=== PATIENT | female | born 1980 | race Caucasian/White ===

== ENCOUNTER 2023-02-21 17:19 | Emergency (ER) | payer MEDICAID, SELFPAY ==
[2023-02-21 17:26] VITALS: BP 149/89; BP 167/83; PULSE 120; PULSE 133; RESP 19; RESP 20; TEMP 37.4; O2SAT 96; BMI 32.9
[2023-02-21 17:31] VITALS: BP 149/89; PULSE 123; RESP 20; O2SAT 94
--- NOTE | 2023-02-21 17:42 | XR_ITS ---
PROCEDURE INFORMATION: Exam: XR Left Forearm Exam date and time: 02/21/2023 5:54 PM Age: 42 years old Clinical indication: Injury or trauma; Laceration; Wrist; Left; Additional info: Laceration, R/O fb TECHNIQUE: Imaging protocol: Radiologic exam of the left forearm. Views: 2 views. COMPARISON: No relevant prior studies available. FINDINGS: Bones/joints: Normal. Soft tissues: Normal. IMPRESSION: No acute findings.
--- NOTE | 2023-02-21 17:46 | HMH.EDGENADL ---
Discharge Plan Disposition Patient Disposition: Home, Self-Care Prescriptions Prescriptions: New cefadroxil 500 mg capsule 500 mg PO BID 5 Days Qty: 10 0RF Referrals Follow up/Referrals: Bonnie Jones PA [Primary Care Provider] - See instructions Clinical Impressions Clinical Impression: Laceration Instructions Patient Instructions: DI for Laceration Repair Discharge ED Provider: Balbir Dimas General Adult HPI General Chief complaint: Wound/Laceration Stated complaint: AO 02/21 lac to left wrist Time Seen by Provider: 02/21/23 17:26 Mode of Arrival: Ambulatory Source of Information: Patient Limitations: No Limitations Description of Symptoms (Recalled from ER Triage Doc. by RN): 42 yo F presents to ED with laceration to right wrist. pt was chopping weeds with a machete, and the blade cut her wrist. happened approx 25 mins ago. pt is not up to date with tetanus immunization. History of Present Illness HPI narrative: This a 42-year-old female with no relevant medical history presenting with laceration. Patient states that she was cutting weeds with a machete with her right hand. Swung, hit her left wrist with a machete. Bleeding hemostatic with pressure. Came to the ER for further evaluation. Last tetanus shot was more than 10 years ago. Denies numbness, weakness, tingling, or loss of motion. Related Data Previous Rx's Medication Instructions Recorded cefadroxil 500 mg capsule 500 mg PO BID 5 days #10 caps 02/21/23 Allergies Allergy/AdvReac Type Severity Reaction Status Date / Time lemon Allergy Verified 02/21/23 17:41 [facility] Disclaimer: The information contained in this section may have been updated after the patient was seen, as this information can be updated by other users. Social History Smoking Status: Current every day smoker alcohol intake: never current occupational status: employed Travel in the last 8 weeks: None ROS Obtained: Yes All systems reviewed & no additional complaints except as documented Physical Exam General General appearance: alert, in no apparent distress and other ( ) Head Head exam: atraumatic and normocephalic Eye Eye exam: Present normal appearance, PERRL and EOMI ENT ENT exam: Present mucous membranes moist Neck Neck exam: Present normal inspection, full ROM and trachea midline Respiratory Respiratory exam: Absent respiratory distress, wheezes, stridor, accessory muscle use or prolonged expiratory phase Cardiovascular Cardiovascular exam: Present regular rate and normal rhythm Abdominal Exam Abdominal exam: Present soft; Absent distention, tenderness, guarding, rebound, rigidity or normal bowel sounds Extremities Exam Extremities exam: Present tenderness (3 cm laceration on ventral aspect of wrist. Neurologically, vascularly intact. Full range of motion including flexion, extension distally. Exposed tendon); Absent edema Neurological Exam Neurological exam: Present alert, oriented X3, CN II-XII intact and normal gait; Absent motor sensory deficit Skin Skin exam: Present warm and dry; Absent diaphoresis or erythema Medical Decision Making Medical Records Medical records reviewed: Yes I reviewed the patient's medical records. Reid Inquiry Pt receiving controlled substance: No Reid was queried for this patient: No Vital Signs: 02/21/23 17:26 02/21/23 17:26 02/21/23 17:31 Temperature 99.3 F Temperature Source Oral Pulse Rate 133 H 123 H Pulse Rate [Left] 120 H Respiratory Rate 19 20 20 Blood Pressure 167/83 H 149/89 H Blood Pressure [Right Arm] 149/89 H Blood Pressure Mean 100 109 Blood Pressure Mean [Right Arm] 109 02 Sat by Pulse Oximetry 96 96 94 L Orders (Tests/Meds): ED MEDICATIONS Discontinued Medications Generic Name Dose Route Start Last Admin Trade Name Freq PRN Reason Stop Dose Admin Lidocaine HCl 10 ml 02/21/23 17:42 Lidocaine 1% 10ml Mdv IJ 02/21/23 17:43
[2023-02-21 19:30] VITALS: BP 140/83; PULSE 100; RESP 17; TEMP 36.7; O2SAT 99
== END 2023-02-21 19:30 | disposition home or self-care (01) ==
PROVIDERS: Emergency Provider Emergency Medicine; PCP Physician Assistant
DX: S61.511A Laceration without foreign body of right wrist, initial encounter (principal); W26.8XXA Contact with other sharp object(s), not elsewhere classified, initial encounter; Y93.H2 Activity, gardening and landscaping; F17.200 Nicotine dependence, unspecified, uncomplicated; Z23 Encounter for immunization
CPT/HCPCS: 12002; 73090; 90471; 90714; 96372; 99283

== ENCOUNTER 2023-04-19 21:49 | Emergency (ER) | payer MEDICAID, SELFPAY ==
[2023-04-19 21:49] VITALS: BP 123/53; PULSE 86; RESP 16; TEMP 36.8; O2SAT 99; BMI 34.3
--- NOTE | 2023-04-19 21:49 | ECG_ITS ---
APPROVED REPORT Exam: Resting ECG HR:81 bpm ECG Measurements Heart Rate 81 AXES MA 151 P 71 QRSd 92 QRS 66 QT 363 T 59 QTc 400 Conclusion SINUS RHYTHM NORMAL ECG UNCONFIRMED REPORT Electronically signed by : Javi Payne MD 04/21/2023 17:13:06
[2023-04-19 21:52] VITALS: PULSE 80
--- NOTE | 2023-04-19 21:54 | XR_ITS ---
PROCEDURE INFORMATION: Exam: XR Chest Exam date and time: 04/19/2023 10:07 PM Age: 42 years old Clinical indication: Pain; Chest pressure; Additional info: Cp TECHNIQUE: Imaging protocol: Radiologic exam of the chest. Views: 2 views. COMPARISON: No relevant prior studies available. FINDINGS: Lungs: Unremarkable. No consolidation. Pleural spaces: Unremarkable. No pleural effusion. No pneumothorax. Heart/Mediastinum: Unremarkable. No cardiomegaly. Bones/joints: Unremarkable. IMPRESSION: No acute findings.
[2023-04-19 22:00] LABS: Basophils # 0.1 K/mm3 (0-0.2); Basophils % 0.6 % (0.1-2.0); Eosinophils # 0.1 K/mm3 (0.0-0.4); Eosinophils % 0.6 % (0.1-12.0); Hematocrit 45.4 % (37.0-47.0); Hemoglobin 14.1 g/dL (12.2-16.2); Lymphocytes # 2.6 K/mm3 (0.7-4.5); Lymphocytes % 22.4 % (10-50); Mean Corpuscular Hemoglobin 26.7 pg (27.0-31.2); Mean Corpuscular Volume 86.2 fl (81-99); Mean Platelet Volume 8.2 fl (7.4-10.4); Monocytes # 0.8 K/mm3 (0.1-1.0); Monocytes % 6.8 % (1.7-9.3); Neutrophils % 69.6 % (37.0-80.0); Platelet Count 406 K/mm3 (142-424); Red Blood Count 5.27 M/mm3 (4.20-5.40); Red Cell Distribution Width 15.1 % (11.5-17.5); White Blood Count 11.5 K/mm3 (4.8-10.8)
[2023-04-19 22:01] VITALS: BP 120/79; PULSE 66; RESP 18; O2SAT 100
[2023-04-19 22:06] LABS: Chloride 108 mmol/L (98-107); Potassium 3.4 mmoL/L (3.5-5.1); Sodium 139 mmol/L (136-145)
[2023-04-19 22:07] LABS: HCG Qualitative, Serum Negative (Negative)
[2023-04-19 22:08] LABS: Blood Urea Nitrogen 5 mg/dl (7-17); Creatinine Clearance Estimated 133 mL/min (50-200); Estimated Glomerular Filt Rate 79 ml/min (>60); GFR (African American) 96 ML/MIN (>60)
[2023-04-19 22:09] LABS: Alanine Aminotransferase 27 U/L (12-78); Albumin Level 4.2 g/dl (3.5-5.0); Albumin/Globulin Ratio 1.4 (1.1-1.8); Alkaline Phosphatase 56 U/L (38-126); Anion Gap 11.4 mEq/L (5-15); Aspartate Amino Transferase 36 U/L (14-36); Bilirubin,Total 0.4 mg/dl (0.2-1.3); Calcium 8.9 mg/dl (8.4-10.2); Carbon Dioxide 23 mmol/L (22.0-30.0); Globulin 3.1 g/dL (1.3-3.2); Glucose 95 mg/dl (74-100); Total Protein,Serum 7.3 g/dl (6.3-8.2)
[2023-04-19 22:22] LABS: Troponin I < 0.01 ng/ml (0.00-0.034)
--- NOTE | 2023-04-19 22:29 | HMH.EDGENADL ---
Discharge Plan Disposition Patient Disposition: Home, Self-Care Chief Complaint: Chest Pain Prescriptions Prescriptions: No Action No Known Home Medications Referrals Follow up/Referrals: Provider,Referral, [Primary Care Provider] - See instructions Activity Restrictions/Add. Instructions Additional Instructions/Restrictions: Call your family doctor to establish care for this visit to the emergency department and schedule follow-up within 48 hours to ensure improvement. If you have any worsening of your condition or any other concerning signs or symptoms, return to the emergency department or your primary care doctor for further evaluation. Clinical Impressions Clinical Impression: Acute dyspnea Discharge ED Provider: Balbir Dimas General Adult HPI General Chief complaint: Chest Pain Stated complaint: cp Time Seen by Provider: 04/19/23 21:54 Mode of Arrival: Ambulatory Source of Information: Patient Limitations: No Limitations Description of Symptoms (Recalled from ER Triage Doc. by RN): pt c/o chest heaviness x several day but today began having pain and numbness radiating up lt side of neck and down lt arm. History of Present Illness HPI narrative: 42-year-old female with history of hypertension, anxiety, asthma presenting with chest tightness. Patient states that she has had chest tightness for the past 3 to 4 days. Has been getting worse. Nonpositional, exertional. She states that she feels like there is a 10,000 pound elephant jumping up and down on my chest. Denies wheezing, fevers, chills, nausea or vomiting. States that she has had associated tingling in her hands and my hands draw up. Related Data Home Medications Medication Instructions Recorded Confirmed No Known Home Medications 04/19/23 04/19/23 Allergies Allergy/AdvReac Type Severity Reaction Status Date / Time lemon Allergy Verified 02/21/23 17:41 [facility] Disclaimer: The information contained in this section may have been updated after the patient was seen, as this information can be updated by other users. Social History (Updated 02/21/23 @ 19:22 by Balbir Dimas MD) Smoking Status: Current every day smoker alcohol intake: never current occupational status: employed Travel in the last 8 weeks: None ROS Obtained: Yes All systems reviewed & no additional complaints except as documented Physical Exam General General appearance: alert, in no apparent distress and anxious Head Head exam: atraumatic and normocephalic Eye Eye exam: Present normal appearance, PERRL and EOMI ENT ENT exam: Present mucous membranes moist Neck Neck exam: Present normal inspection, full ROM and trachea midline Respiratory Respiratory exam: Present normal lung sounds bilaterally; Absent respiratory distress, wheezes, stridor, accessory muscle use or prolonged expiratory phase Cardiovascular Cardiovascular exam: Present regular rate and normal rhythm Abdominal Exam Abdominal exam: Present soft; Absent distention, tenderness, guarding, rebound, rigidity or normal bowel sounds Extremities Exam Extremities exam: Present edema Neurological Exam Neurological exam: Present alert, oriented X3, CN II-XII intact and normal gait; Absent motor sensory deficit Skin Skin exam: Present warm and dry; Absent diaphoresis or erythema Medical Decision Making Medical Records Medical records reviewed: Yes I reviewed the patient's medical records. Reid Inquiry Pt receiving controlled substance: No Reid was queried for this patient: No Vital Signs: 04/19/23 21:49 04/19/23 21:52 04/19/23 22:01 Temperature 98.2 F Temperature Source Oral Pulse Rate 80 66 Pulse Rate [Right] 86 Respiratory Rate 16 18 Blood Pressure 120/79 Blood Pressure [Right Arm] 123/53 L Blood Pressure Mean 89 Blood Pressure Mean [Right Arm] 76 02 Sat by Pulse Oximetry 99 100 04/19/23 22:31 Temperature Temperature Source Pul
[2023-04-19 22:31] VITALS: BP 121/75; PULSE 73; RESP 20; O2SAT 100
[2023-04-19 23:20] VITALS: BP 143/74; PULSE 77; RESP 18; TEMP 36.7; O2SAT 98
== END 2023-04-19 23:21 | disposition home or self-care (01) ==
PROVIDERS: Emergency Provider Emergency Medicine
DX: R07.89 Other chest pain (principal); R06.00 Dyspnea, unspecified; I10 Essential (primary) hypertension; F41.9 Anxiety disorder, unspecified; J45.909 Unspecified asthma, uncomplicated; F17.200 Nicotine dependence, unspecified, uncomplicated
CPT/HCPCS: 71046; 80053; 84484; 84703; 85025; 93005; 99285

== ENCOUNTER → 2023-05-19 09:08 | Outpatient (CLI) | payer MEDICAID, SELFPAY ==
[2023-05-19 19:05] LABS: Basophils # 0.1 K/mm3 (0-0.2); Basophils % 0.5 % (0.1-2.0); Eosinophils # 0.1 K/mm3 (0.0-0.4); Eosinophils % 1.5 % (0.1-12.0); Hematocrit 42.5 % (37.0-47.0); Hemoglobin 14.2 g/dL (12.2-16.2); Lymphocytes # 2.6 K/mm3 (0.7-4.5); Lymphocytes % 28.9 % (10-50); Mean Corpuscular HGB Conc 33.4 g/dL (31.8-35.4); Mean Corpuscular Volume 86.7 fl (81-99); Mean Platelet Volume 9.3 fl (7.4-10.4); Monocytes # 0.7 K/mm3 (0.1-1.0); Monocytes % 7.7 % (1.7-9.3); Neutrophils # 5.6 K/mm3 (1.8-7.8); Neutrophils % 61.5 % (37.0-80.0); Platelet Count 404 K/mm3 (142-424); White Blood Count 9.1 K/mm3 (4.8-10.8)
[2023-05-19 19:30] LABS: HCG Qualitative, Serum Negative (Negative)
[2023-05-19 19:33] LABS: Alanine Aminotransferase 19 U/L (12-78); Albumin Level 4.3 g/dl (3.5-5.0); Albumin/Globulin Ratio 1.5 (1.1-1.8); Alkaline Phosphatase 64 U/L (38-126); Anion Gap 12.3 mEq/L (5-15); Aspartate Amino Transferase 30 U/L (14-36); Bilirubin,Total 0.3 mg/dl (0.2-1.3); Blood Urea Nitrogen 9 mg/dl (7-17); Calcium 9.2 mg/dl (8.4-10.2); Carbon Dioxide 24 mmol/L (22.0-30.0); Chloride 104 mmol/L (98-107); Estimated Glomerular Filt Rate 92 ml/min (>60); GFR (African American) 112 ML/MIN (>60); Globulin 2.9 g/dL (1.3-3.2); Glucose 89 mg/dl (74-100); Potassium 4.3 mmoL/L (3.5-5.1); Sodium 136 mmol/L (136-145); Total Protein,Serum 7.2 g/dl (6.3-8.2)
[2023-05-19 19:41] LABS: Hemoglobin A1C 5.4 % (4.0-6.0)
[2023-05-19 19:50] LABS: 25-OH Vitamin D, Total 38.5 ng/mL (30-100)
[2023-05-19 19:54] LABS: HCG,Quantitative < 2 mIU/ml (0-5.42)
[2023-05-19 22:16] LABS: Barbiturates Screen,Urine Negative ng/ml (<200)
[2023-05-19 22:17] LABS: Benzodiazepines Screen,Urine Negative ng/ml (<200)
[2023-05-19 22:18] LABS: Amphetamine/Metha Screen,Urine Negative ng/ml (<1000); Cannabinoid Screen,Urine Negative ng/ml (<50)
[2023-05-19 22:19] LABS: Cocaine Screen,Urine Negative ng/ml (<300)
[2023-05-19 22:20] LABS: Methadone Screen,Urine Negative ng/ml (<300); Opiate Screen,Urine Negative ng/ml (<300)
[2023-05-19 22:21] LABS: Phencyclidine Screen,Urine Negative ng/ml (<25)
[2023-05-21 13:09] LABS: Hep A Ab, Total Positive (Negative); Hep B Core Ab, Total Negative (Negative); Hep B Surface Ab, Qual Reactive (.)
[2023-05-25 12:24] LABS: Fibrosis Score 0.02; HIV Screen 4th Generation wRfx Non Reactive; Hepatitis B Surface Antigen Negative; Hepatitis C Antibody Non Reactive
[2023-05-25 12:25] LABS: Alpha 2-Macroglobulins, Qn 179; Fibrosis Stage F0- NO FIBROSIS; Haptoglobin 276; Necroinflammat Activity Grade A0- NO ACTIVITY; Necroinflammat Activity Score 0.03
[2023-05-25 12:26] LABS: ALT (SGPT) P5P 15; Apolipoprotein A-1 133; Bilirubin, Total <0.1; GGT 14
== END ==
PROVIDERS: PCP Internal Medicine; Visit Provider Internal Medicine
DX: R53.83 Other fatigue (principal); G40.909 Epilepsy, unspecified, not intractable, without status epilepticus; F15.10 Other stimulant abuse, uncomplicated; F43.10 Post-traumatic stress disorder, unspecified; F07.81 Postconcussional syndrome; M62.838 Other muscle spasm; R60.0 Localized edema; E66.01 Morbid (severe) obesity due to excess calories; Z68.41 Body mass index [BMI] 40.0-44.9, adult; Z72.0 Tobacco use; Z79.899 Other long term (current) drug therapy; G44.221 Chronic tension-type headache, intractable; Z11.4 Encounter for screening for human immunodeficiency virus [HIV]
CPT/HCPCS: 80053; 80305; 81596; 82306; 83036; 84443; 84702; 84703; 85025; 86703; 86704; 86706; 86708; 87340; 87380; 87522; 87902; G0432

== ENCOUNTER → 2023-07-08 13:47 | Outpatient (CLI) | payer MEDICAID, SELFPAY ==
--- NOTE | 2023-07-08 14:01 | US_ITS ---
PROCEDURE: US TRANSVAGINAL CLINICAL INDICATION: abnormal uterine bleeding COMPARISON: No exams were available for comparison FINDINGS: Transvaginal sonographic images of the pelvis were obtained. UTERUS: 8.2cm x 4.6cmx 3.7cm anteverted with a combined endometrial thickness of 8mm. A scar is seen. There are several small nabothian cysts. The endometrium appears thin but difficult to visualize. There are adjacent echogenic foci possibly consistent with adenomyosis. LEFT OVARY: 1.9cmx1.5cmx1.4cm with a volume of 2.1ml. There is a 1.0 cm follicle. RIGHT OVARY: 3.0cmx 1.7cmx1.4cm with a volume of 3.6ml. There are several small follicles. The largest measures 6 mm. Both ovaries are seen and appear normal. Doppler flow to both ovaries are seen. There is no fluid in the cul-de-sac. IMPRESSION: 1. Anteverted uterus normal in shape and size. 2. The endometrium appears thin with adjacent hyperechoic, echogenic foci possibly consistent with adenomyosis. 3. Both ovaries are seen and appear normal. 4. No fluid in the cul-de-sac Dictated by: Aditya Delcid MD 07/09/2023 11:46 Aditya Delcid MD in [place] 07/09/2023 11:46
--- NOTE | 2023-07-08 14:01 | MM_ITS ---
PROCEDURE INFORMATION: Exam: MG Bilateral Screening 3D Mammography Exam date and time: 07/08/2023 2:12 PM Age: 43 years old Clinical indication: Baseline Screening mammogram TECHNIQUE: Imaging protocol: Bilateral Screening tomosynthesis and 2D mammography including computer-aided detection (CAD) when performed. COMPARISON: No relevant prior studies available. FINDINGS: MAMMOGRAPHY: Breast composition: There are scattered areas of fibroglandular density. Mass: None. Architectural distortion: No new or suspicious architectural distortion. Calcifications: No new or suspicious calcifications are present Asymmetric density: No new or suspicious asymmetric density is present Skin thickening: None. Axillary adenopathy: None. IMPRESSION: No mammographic evidence of malignancy. Recommend annual screening mammography unless otherwise clinically indicated. ASSESSMENT: BI-RADS category 1: Negative
== END ==
PROVIDERS: PCP Internal Medicine; Visit Provider Obstetrics & Gynecology
DX: Z12.31 Encounter for screening mammogram for malignant neoplasm of breast (principal); N93.9 Abnormal uterine and vaginal bleeding, unspecified
CPT/HCPCS: 76830; 77063; 77067

== ENCOUNTER 2023-07-08 18:58 | Emergency (ER) | payer MEDICAID, SELFPAY ==
[2023-07-08 18:59] VITALS: BP 146/74; PULSE 104; RESP 20; TEMP 36.9; O2SAT 97; BMI 35.4
[2023-07-08 19:11] VITALS: BMI 35.4
--- NOTE | 2023-07-08 19:12 | XR_ITS ---
PROCEDURE INFORMATION: Exam: XR Chest Exam date and time: 07/08/2023 7:08 PM Age: 43 years old Clinical indication: Cough TECHNIQUE: Imaging protocol: Radiologic exam of the chest. Views: 2 views. COMPARISON: CR XR CHEST 2V 04/19/2023 10:07 PM FINDINGS: Lungs: Unremarkable. No consolidation. Pleural spaces: Unremarkable. No pleural effusion. No pneumothorax. Heart/Mediastinum: Unremarkable. No cardiomegaly. Bones/joints: Unremarkable. IMPRESSION: No acute findings.
[2023-07-08 19:14] LABS: Coronavirus 19, PCR Not Detected (NotDetected); Influenza A, PCR Not Detected (NotDetected); Influenza B, PCR Not Detected (NotDetected)
--- NOTE | 2023-07-08 19:37 | HMH.EDGENADL ---
Discharge Plan Disposition Patient Disposition: Eloped Chief Complaint: Shortness of Breath/Dyspnea Prescriptions Prescriptions: No Action levetiracetam 500 mg tablet PO hydroxyzine pamoate 50 mg capsule 50 mg PO Q8H PRN venlafaxine 75 mg capsule,extended release 24hr PO Patient Comments: TAKE 1 CAPSULE BY MOUTH ONCE DAILY spironolactone 50 mg tablet 50 mg PO DAILY Patient Comments: TAKE 1 TABLET BY MOUTH ONCE DAILY propranolol 10 mg tablet 10 mg PO TID Patient Comments: TAKE 1 TABLET BY MOUTH THREE TIMES DAILY pramipexole 0.5 mg tablet 0.25 mg PO TID 30 Days Qty: 45 2RF hydrochlorothiazide 12.5 mg tablet 12.5 mg PO DAILY 30 Days Qty: 30 2RF albuterol sulfate 90 mcg/actuation HFA aerosol inhaler 2 puff inhalation Q6H PRN Prempro 0.45-1.5 mg tablet 1 tab PO DAILY Qty: 28 2RF Referrals Follow up/Referrals: Francisco Rosenthal DO [Primary Care Provider] - See instructions Clinical Impressions Clinical Impression: Asthma with exacerbation Discharge ED Provider: Tanisha العلي General Adult HPI General Chief complaint: Shortness of Breath/Dyspnea Stated complaint: SOA Time Seen by Provider: 07/08/23 19:18 Mode of Arrival: Ambulatory Source of Information: Patient Limitations: No Limitations Description of Symptoms (Recalled from ER Triage Doc. by RN): Pt presents with SOA that began 45 mins ago, associated with cough, tightness in her chest, and back pain. Pt is currently getting duoneb, covid swab and chest xray. History of Present Illness HPI narrative: This patient is a 43-year-old female with a history of asthma presented to the emergency department for evaluation with concern for shortness of breath and feeling like an elephant is sitting on her chest. She states that she thinks that she has COPD but has not been diagnosed. On medical record review, she has been seen in the ED multiple times for similar symptoms, last time in March. She was found to be wheezing at that time and was given DuoNebs with improvement. She is subsequently discharged home. She denies any other concerns, such as fevers, chills, chest pain, abdominal pain, nausea, vomiting, or other issues. Related Data Home Medications Medication Instructions Recorded Confirmed hydroxyzine pamoate 50 mg capsule 50 mg PO Q8H PRN 10/30/23 11/21/23 levetiracetam 500 mg tablet mg PO 05/19/23 06/10/23 propranolol 10 mg tablet 10 mg PO TID 05/19/23 06/10/23 spironolactone 50 mg tablet 50 mg PO DAILY 05/19/23 06/10/23 venlafaxine 75 mg capsule,extended mg PO 05/19/23 06/10/23 release 24 hr albuterol sulfate 90 mcg/actuation 2 puff inhalation Q6H PRN 06/10/23 06/10/23 aerosol inhaler Previous Rx's Medication Instructions Recorded hydrochlorothiazide 12.5 mg tablet 12.5 mg PO DAILY 30 days #30 tabs 05/19/23 pramipexole 0.5 mg tablet 0.25 mg PO TID 30 days #45 tabs 05/19/23 conj estrogen-medroxyprogesterone 1 tab PO DAILY #28 tabs 06/17/23 0.45 mg-1.5 mg tablet (Prempro) Allergies Allergy/AdvReac Type Severity Reaction Status Date / Time lemon Allergy Verified 06/10/23 13:53 [facility] Disclaimer: The information contained in this section may have been updated after the patient was seen, as this information can be updated by other users. Medical History Anxiety Bipolar disorder Depression Surgical History H/O: Family History Other Alcoholism Asthma Cancer Coronary artery disease Diabetes FHx: mental illness Heart attack Hyperlipidemia Hypertension Tuberculosis Social History Smoking Status: Current every day smoker tobacco type: cigarettes alcohol intake: never substance use type: former substance user
[2023-07-08 21:31] VITALS: BP 124/72; PULSE 101; RESP 0; TEMP -17.7; TEMP 0; O2SAT 97
--- NOTE | 2023-07-08 21:31 | PC.NURSE ---
Pt left [facility] ED without informing staff
== END 2023-07-08 21:39 | disposition left against medical advice (07) ==
PROVIDERS: Emergency Provider Emergency Medicine; PCP Internal Medicine
DX: J45.901 Unspecified asthma with (acute) exacerbation (principal); R06.02 Shortness of breath; F17.210 Nicotine dependence, cigarettes, uncomplicated
CPT/HCPCS: 71046; 87636; 93005; 99284